=== PATIENT | male | born 1990 | race Caucasian/White ===

== ENCOUNTER 2017-08-11 07:49 | Day surgery (SDC) | payer BC ==
[2017-08-06 15:38] VITALS: BMI 22.0
[2017-08-11] MEDS ORDERED: OXYMETAZOLINE 0.05% NASAL SOLUTION 15 ML BOTTLE NS ONE (09:52)
[2017-08-11] MEDS ORDERED: LIDOCAINE 1%/EPI 1:100000 (20 ML MULTI DOSE VIAL) ONE (09:52)
[2017-08-11] MEDS ORDERED: ROCURONIUM BROMIDE 50 MG/5 ML VIAL ONE (10:00)
[2017-08-11] MEDS ORDERED: PROPOFOL 20 ML ONE ×4 (10:00→13:54)
[2017-08-11] MEDS ORDERED: MIDAZOLAM HCL 2 MG/2 ML SINGLE DOSE VIAL ONE (10:01)
[2017-08-11] MEDS ORDERED: DESFLURANE GAS 240 ML BOTTLE IH ONE (10:07)
[2017-08-11] MEDS ORDERED: HALOPERIDOL LACTATE 5 MG/ML ONE (10:08)
[2017-08-11] MEDS ORDERED: ONDANSETRON 4 MG/2 ML VIAL ONE ×2 (11:44→14:27)
[2017-08-11] MEDS ORDERED: ceFAZolin SODIUM 1 GM VIAL ONE ×2 (11:44→14:27)
[2017-08-11] MEDS ORDERED: LIDOCAINE HCL/PF 2% SDV 5ML VIAL ONE (11:44)
[2017-08-11] MEDS ORDERED: DEXAMETHASONE SOD PHOSPHATE 4 MG/1 ML VIAL ONE (11:44)
[2017-08-11] MEDS ORDERED: LIDOCAINE HCL 1%, 10 MG/ML (20ML VIAL) INF ONE (11:59)
[2017-08-11] MEDS ORDERED: BACITRACIN 15 GM TUBE TOPICAL OINTMENT ONE (15:36)
[2017-08-11] MEDS ORDERED: BACITRACIN 3.5 GM OPTHALMIC OINT TUBE ONE (15:36)
[2017-08-11] MEDS ORDERED: PROMETHAZINE HCL 25 MG/1 ML VIAL IVPUSH PRN (15:46)
[2017-08-11] MEDS ORDERED: ONDANSETRON 4 MG/2 ML VIAL IVPUSH PRN (15:46)
[2017-08-11] MEDS ORDERED: oxyCODONE HCL 5 MG TABLET PO PRN ×4 (15:46→17:04)
[2017-08-11] MEDS ORDERED: LACTATED RINGERS SOLUTION 1,000 ML IV SCH ×2 (16:00→17:15)
[2017-08-11] MEDS ORDERED: ONDANSETRON 4 MG/2 ML VIAL IVPB PRN (17:04)
--- NOTE | 2017-08-11 17:07 | OP ---
Operative Note - Note: Operative Date: 08/11/17 Pre-Operative Diagnosis: deviated nasal septum Operation: septorhinoplasty Findings: above Post-Operative Diagnosis: Same as Pre-op Surgeon: Marcial Gonzalez Anesthesia: General
[2017-08-11 17:46] VITALS: TEMP 98.1
[2017-08-11 17:49] VITALS: BP 126/67; PULSE 86
--- NOTE | 2017-08-12 10:59 | OP ---
DATE OF OPERATION: 08/11/2017 TITLE OF PROCEDURE: Septorhinoplasty. PREOPERATIVE DIAGNOSIS: Deviated nasal septum with nasal deviation. POSTOPERATIVE DIAGNOSIS: Deviated nasal septum with nasal deviation. ATTENDING SURGEON: Marcial Gonzalez MD ANESTHESIA: General endotracheal anesthesia. A total of 8 mL of 1% lidocaine with 1:100,000 epinephrine are injected preoperatively to the subcutaneous space on the nose as well as the submucosal plane of the nasal septum. Additionally, at a later point in the operation, an additional 4 mL of 1% lidocaine with 1:100,000 epinephrine were injected in submucoperichondrial tunnels and periosteal tunnels in preparation for medial and lateral osteotomies. The patient is seen and counseled in the holding area, discussed all risks, benefits, and alternatives to the procedure, which he understood and agrees to proceed. He understands the plan for a transcolumellar approach as well as a septoplasty. He understands the limitations of the operation in that aesthetic goals as well as full functional correction may not be necessarily achieved. The patient is brought to the operating room, placed in a supine position, prepped and draped in standard surgical fashion. Sequential compression stockings are applied bilaterally. He is prepped with a throat pack as well as bilateral nasal Afrin-soaked cottonoid packing while the remainder of the prep is done. A gram of Ancef is given preoperatively, and at this point, the transcolumellar incision is made with a stair-step in the midline, connected to bilateral rimming incisions along the inferior border of the lower lateral cartilages. Dissection is performed under loupe magnification and direct vision deep onto the cartilage, leaving the full subcutaneous thickness on the skin flaps. The flaps were elevated to the dorsum. The dorsum is then elevated in a subcutaneous plane, exposing the cartilaginous dorsum. It was noted that the dissection was difficult, complicated by the fact that the patient had 2 previous rhinoplasties with significant amounts of scar tissue. Once the skin dissection is completed, the anterior septal angle is identified, and the septal dissection is begun. The septum is dissected by submucoperichondrial elevation using a [place] elevator, exposing the entirety of the septum. There is significant scarring on multiple occasions between the septal cartilage and the mucosa. However, it does not appear that any septum is resected from the patient's previous septoplasty. Once the septum is entirely exposed, the most-deviated portion of the septum is marked, and a submucosal resection is performed, leaving a 1.5-cm L strut both caudally and dorsally. The residual base of the caudal septum is found to be significantly displaced off of the anterior maxillary spine. Using a 5-0 nylon anchoring suture from the periosteum to the base of the caudal septum, this is repositioned midline. Several additional 5-0 Vicryl sutures are used to better support this position. There remains a curvature to the anterior septal strut. This is addressed using a support graft placed on the left side of the septum where the septum is bowing away from. This septal graft is a strip of cartilage harvested from the submucosal septal resection, and this is sutured with 2 mattressed 5-0 nylon sutures along the anterior L strut of the septum to straighten this portion. At completion of this, the cartilaginous dorsum which was an aesthetic complaint of the patient is addressed. The septum, having been from the upper lateral cartilages bilaterally, is able to be lowered with piecemeal shavings using a 15 blade. Upper lateral cartilages are likewise shaved as necessary for a smooth contour. The nasal bones at this point are slightly rasped in order to meet the dorsal height of the cartilaginous portions. At this point, the injections are made for the periosteal tunnels and osteotomies using a straight 3-mm single-guarded osteotome. Bilateral medial osteotomies are performed, followed by bilateral lateral osteotomies performed through endonasal pyriform aperture incisions. The in-fractures are able to be performed atraumatically until a midline position of the dorsal bony pyramid is achieved. Attention is then directed toward the tip. The tip, which had been dissected slightly to expose the anterior septal angle, is then re-sutured to itself. A second portion of the resected cartilage from the septum is used as a columellar strut placed between the bilateral medial crura of the lower lateral cartilages. It is secured with a mattressed 5-0 nylon suture, also positioned to straighten the columella which preoperatively was severely deviated. An excellent correction is seen in the septal position as well as the position of the tip. A final small portion of the septal cartilage is used as a crushed cartilage graft to the tip to add projection. This is crushed with a standard cartilage dobie worker and secured at several points with a series of simple 6-0 nylon sutures to the tip. With the skin re-draped, all skin is pink and viable. The aesthetics of the nose are excellent. The skin closure is then performed with a series of interrupted 6-0 nylon suture of the transcolumellar incision. The endonasal incisions are closed with a series of interrupted 5-0 chromic gut suture. Internal nasal splints are applied with bacitracin and 2 separate 4-0 Prolene mattressed sutures, and an external nasal [place] splint is applied. A moustache dressing is applied. The tip skin is pink and viable. Patient was awoken from anesthesia, having tolerated the procedure well, transferred to recovery. Mimi [id number]
== END 2017-08-11 17:40 | disposition home or self-care (01) ==
LOC: FASU 07:49
PROVIDERS: ATTEND Plastic Surgery
PROC: 09UK07Z Supplement Nasal Mucosa and Soft Tissue with Autologous Tissue Substitute, Open Approach (ICD-10-PCS; 2017-08-11)
PROC: 09SM0ZZ Reposition Nasal Septum, Open Approach (ICD-10-PCS; principal; 2017-08-11 11:05)
DX: J34.2 Deviated nasal septum (principal)
CPT/HCPCS: 94760